=== PATIENT | female | born 1995 | race Caucasian/White ===

== ENCOUNTER 2016-10-22 23:41 | Emergency (ER) | payer MEDICAID ==
[~2016-10-22] VITALS: Ht 172.7 cm; Wt 91.0 kg
[2016-10-22 23:43] VITALS: BP 122/74; PULSE 101; RESP 16; TEMP 98.7; O2SAT 99
[2016-10-22] MEDS ORDERED: NITR1CAP24 PO (23:51)
[2016-10-22] MEDS ORDERED: PHEN0.4T PO (23:51)
[2016-10-23] MEDS ORDERED: SODIUM CHLOR 0.9% 1000 ML INJ 1,000 ML IV SCH (00:07)
[2016-10-23] MEDS ORDERED: ONDANSETRON HCL 4 MG/2 ML VIAL IVP ONE (00:15)
[2016-10-23] MEDS ORDERED: SODIUM CHLORIDE 0.9% FLUSH 10 ML FLUSH IV FLUSH PRN (00:15)
[2016-10-23 00:30] LABS: AUTOMATED NEUTROPHIL # 9.2 TH/MM3 (1.8-7.7); BASOPHIL # 0.1 TH/MM3 (0-0.2); BASOPHIL % 0.8 % (0.0-2.0); EOSINOPHIL # 0.1 TH/MM3 (0-0.4); EOSINOPHIL % 0.6 % (0.0-4.0); HEMATOCRIT 38.8 % (35.0-46.0); HEMO FLAGS DIFF FINAL; LYMPH % 16.7 % (9.0-44.0); MEAN CELL VOLUME 74.7 FL (80.0-100.0); MEAN CORPUSCULAR HEMOGLOBIN 23.7 PG (27.0-34.0); MEAN CORPUSCULAR HGB CONC 31.7 % (32.0-36.0); MONO % 4.6 % (0.0-8.0); NEUT % 77.3 % (16.0-70.0); PLATELET COUNT 326 TH/MM3 (150-450); RED CELL DISTRIBUTION WIDTH 18.1 % (11.6-17.2); WHITE BLOOD COUNT 11.9 TH/MM3 (4.0-11.0)
--- NOTE | 2016-10-23 00:30 | PD ---
HPI Chief Complaint: GI Complaint Time Seen by Provider: 00:28 Travel History International Travel<30 days: No Contact w/Intl Traveler<30days: No Traveled to known affect area: No History of Present Illness HPI 21-year-old female who is 10 weeks by dates, had been seen 10 days ago at [facility] for UTI and had confirmed IUP there, presents to the ER today because she states that she has been having several days' history of nausea and vomiting. She she also states she has noticed blood in her urine. She denies any significant abdominal pains currently, fevers, or any other symptoms. She has not had any vaginal bleeding. Modifying Factors: None Associated Signs & Symptoms: Blood in the urine, nausea and vomiting Risk Factors: Recent UTI, PFSH Past Medical History Asthma: Yes (AND SEASONAL ALLERGIES) Cardiovascular Problems: No Developmental Delay: No Diminished Hearing: No Diverticulitis: Yes Gastrointestinal Disorders: Yes (ENDOSCOPY AND COLONOSCOPY X 2) Genitourinary: No Headaches: Yes Musculoskeletal: No Neurologic: No Psychiatric: No Respiratory: Yes Immunizations Current: Yes Ulcer: Yes Tetanus Vaccination: Unknown Influenza Vaccination: No ?: Not LMP: 08/07/16 : 2 Miscarriage: 2 Ovarian Cysts: Yes Dilation and Curettage (D&C): Yes Past Surgical History Gynecologic Surgery: Yes (DNC) Social History Alcohol Use: Yes (DOES NOT QUANTIFY) Tobacco Use: No Substance Use: No Allergies-Medications (Allergen,Severity, Reaction): Coded Allergies: Ceftin (Verified Allergy, Severe, RASH, 10/22/16) Reported Meds & Prescriptions Reported Meds & Active Scripts Active Reported Pyridium (Phenazopyridine HCl) 100 Mg Tab 100 Mg PO Q8H PRN Nitrofurantoin Macrocrystal 25 Mg Cap 25 Mg PO QID Review of Systems Except as stated in HPI: all other systems reviewed are Neg Physical Exam Narrative GENERAL: Well-developed young white female patient currently in mild distress. Awake and oriented 3. SKIN: Focused skin assessment warm/dry. HEAD: Atraumatic. Normocephalic. EYES: Pupils equal and round. No scleral icterus. No injection or drainage. ENT: No nasal bleeding or discharge. Mucous membranes pink and moist. NECK: Trachea midline. No JVD. CARDIOVASCULAR: Regular rate and rhythm. No murmur appreciated. RESPIRATORY: No accessory muscle use. Clear to auscultation. Breath sounds equal bilaterally. GASTROINTESTINAL: Abdomen soft, non-tender, nondistended. Hepatic and splenic margins not palpable. MUSCULOSKELETAL: No obvious deformities. No clubbing. No cyanosis. No edema. NEUROLOGICAL: Awake and alert. No obvious cranial nerve deficits. Motor grossly within normal limits. Normal speech. PSYCHIATRIC: Appropriate mood and affect; insight and judgment normal. Data Data Last Documented VS Vital Signs Date Time Temp Pulse Resp B/P Pulse Ox O2 Delivery O2 Flow Rate FiO2 10/22/16 23:43 98.7 101 16 122/74 99 Orders Beta Hcg (Quant/Titer) (10/23/16 00:07) Complete Blood Count With Diff (10/23/16 00:07) Comprehensive Metabolic Panel (10/23/16 00:07) Lipase (10/23/16 00:07) Urinalysis - C+S If Indicated (10/23/16 00:07) Iv Access Insert/Monitor (10/23/16 00:07) Ecg Monitoring (10/23/16 00:07) Oximetry (10/23/16 00:07) Ondansetron Inj (Zofran Inj) (10/23/16 00:15) Sodium Chlor 0.9% 1000 Ml Inj (Ns 1000 M (10/23/16 00:07) Sodium Chloride 0.9% Flush (Ns Flush) (10/23/16 00:15) Urine Culture (10/23/16 00:40) Labs Laboratory Tests Test 10/23/16 10/23/16 00:20 00:40 White Blood Count 11.9 TH/MM3 Red Blood Count 5.20 MIL/MM3 Hemoglobin 12.3 GM/DL Hematocrit 38.8 % Mean Corpuscular Volume 74.7 FL Mean Corpuscular Hemoglobin 23.7 PG Mean Corpuscular Hemoglobin 31.7 % Concent Red Cell Distribution Width 18.1 % Platelet Count 326 TH/MM3 Mean Platelet Volume 7.9 FL Neutrophils (%) (Auto) 77.3 % Lymphocytes (%) (Auto) 16.7 % Monocytes (%) (Auto) 4.6 % Eosinophils (%) (Auto) 0.6 % Basophils (%) (Auto) 0.8 % Neutrophils # (Auto) 9.2 TH/MM3 Lymphocytes # (Auto) 2.0 TH/MM3 Monocytes # (Auto) 0.6 TH/MM3 Eosinophils # (Auto) 0.1 TH/MM3 Basophils # (Auto) 0.1 TH/MM3 CBC Comment DIFF FINAL Differential Comment Sodium Level 139 MEQ/L Potassium Level 4.4 MEQ/L Chloride Level 106 MEQ/L Carbon Dioxide Level 22.7 MEQ/L Anion Gap 10 MEQ/L Blood Urea Nitrogen 6 MG/DL Creatinine 0.69 MG/DL Estimat Glomerular Filtration 107 ML/MIN Rate Random Glucose 75 MG/DL Calcium Level 9.2 MG/DL Total Bilirubin 0.3 MG/DL Aspartate Amino Transf 44 U/L (AST/SGOT) Alanine Aminotransferase 19 U/L (ALT/SGPT) Alkaline Phosphatase 70 U/L Total Protein 8.2 GM/DL Albumin 3.5 GM/DL Lipase 219 U/L Human Chorionic Gonadotropin, [id number] MIU/ML Quant Urine Color YELLOW Urine Turbidity HAZY Urine pH 6.0 Urine Specific Volin 1.030 Urine Protein 30 mg/dL Urine Glucose (UA) NEG mg/dL Urine Ketones 80 mg/dL Urine Occult Blood TRACE Urine Nitrite NEG Urine Bilirubin NEG Urine Urobilinogen LESS THAN 2.0 MG/DL Urine Leukocyte Esterase NEG Urine RBC 2 /hpf Urine WBC 8 /hpf Urine Squamous Epithelial 4 /hpf Cells Urine Bacteria MOD /hpf Urine Mucus FEW /lpf Microscopic Urinalysis Comment CULTURE INDICATED MDM Medical Decision Making Medical Screen Exam Complete: Yes Emergency Medical Condition: Yes Medical Record Reviewed: Yes Interpretation(s) Laboratory Tests Test 10/23/16 10/23/16 00:20 00:40 White Blood Count 11.9 TH/MM3 (4.0-11.0) Mean Corpuscular Volume 74.7 FL (80.0-100.0) Mean Corpuscular Hemoglobin 23.7 PG (27.0-34.0) Mean Corpuscular Hemoglobin 31.7 % Concent (32.0-36.0) Red Cell Distribution Width 18.1 % (11.6-17.2) Neutrophils (%) (Auto) 77.3 % (16.0-70.0) Neutrophils # (Auto) 9.2 TH/MM3 (1.8-7.7) Blood Urea Nitrogen 6 MG/DL (7-18) Aspartate Amino Transf 44 U/L (15-37) (AST/SGOT) Human Chorionic Gonadotropin, [id number] MIU/ML Quant (0-5) Urine Turbidity HAZY (CLEAR) Urine Protein 30 mg/dL (NEG-TRACE) Urine Ketones 80 mg/dL (NEG) Urine Occult Blood TRACE (NEG) Urine WBC 8 /hpf (0-5) Urine Bacteria MOD /hpf (NONE) Urine Mucus FEW /lpf (OCC) Differential Diagnosis Nausea, vomiting, blood in the urineUTI versus dehydration versus metabolic issues versus hyperemesis gravidarum Narrative Course heart tones were measured at 120 according to nurse for patient. Lab work does show UTI still. No significant metabolic issues identified. Abdomen is benign and I do not suspect an acute intra-abdominal process. I suspect that some of the nausea and vomiting may be secondary to hyperemesis gravidarum. I me to treat her UTI as well as give her nausea medication. Patient needs follow-up with [facility]. Return for any worsening in symptoms as needed. The plan has been discussed with her and she states understanding. Diagnosis Primary Impression: UTI (urinary tract infection) Additional Impression: Hyperemesis gravidarum Med/Other Pt SpecificInfo: Prescription(s) given Scripts Ondansetron Odt (Zofran Odt)4 Mg Tab4 Mg SL Q6HR PRN (Nausea/Vomiting) #7 TAB Ref 0 Prov:Kyara Camacho MD 10/23/16 Amoxicillin 500 Mg [id number] Mg PO BID 7 Days Ref 0 Prov:Kyara Camacho MD 10/23/16 Disposition: 01 DISCHARGE HOME Condition: Stable Kyara Camacho MD Oct 23, 2016 00:30
[2016-10-23 00:56] LABS: ALT (GPT) 19 U/L (10-53); ANION GAP 10 MEQ/L (5-15); AST (GOT) 44 U/L (15-37); BICARBONATE 22.7 MEQ/L (21.0-32.0); BLOOD UREA NITROGEN 6 MG/DL (7-18); CHLORIDE 106 MEQ/L (98-107); GLOMERULAR FILTRATION RATE 107 ML/MIN (>89); SODIUM (NA) 139 MEQ/L (136-145)
[2016-10-23 00:57] LABS: POTASSIUM 4.4 MEQ/L (3.5-5.1)
[2016-10-23 01:00] LABS: ALKALINE PHOSPHATASE 70 U/L (45-117); BETA HCG QUANT 103231 MIU/ML (0-5); TOTAL BILIRUBIN ADULT 0.3 MG/DL (0.2-1.0)
[2016-10-23 01:04] LABS: BACTERIA, URINE MOD /hpf; BLOOD, URINE TRACE (NEG); COMMENT (UR) CULTURE INDICATED; CULTURE IF INDICATED CULTURE INDICATED; GLUCOSE,URINE NEG (NEG); KETONE, URINE 80 mg/dL (NEG); MUCUS URINE FEW /lpf (OCC); NITRITE,URINE NEG (NEG); SQUAMOUS EPITHELIAL CELL URINE 4 /hpf (0-5); URINE COLOR YELLOW (YELLW/STRAW)
[2016-10-23] MEDS ORDERED: AMOX500T PO (01:30)
[2016-10-23] MEDS ORDERED: ZOFR4TAB3 SL (01:30)
== END 2016-10-23 02:14 | disposition home or self-care (01) ==
LOC: NEPE 23:41
DX: O21.0 Mild hyperemesis gravidarum (principal); O23.41 Unspecified infection of urinary tract in pregnancy, first trimester; B96.89 Other specified bacterial agents as the cause of diseases classified elsewhere; Z3A.10 10 weeks gestation of pregnancy
CPT/HCPCS: 80053; 81001; 83690; 84702; 85025; 87086; 96361; 96374; 99284; J2405; J7030